=== PATIENT | male | born 1990 | race Caucasian/White ===

== ENCOUNTER 2020-11-21 17:07 | Inpatient (IN) | payer OTHER ==
[2020-11-21 20:18] LABS: Absolute Lymphocytes (CBC) 2.1 K/uL (0.7-4.9); Basophils % 0.7 % (0-1.3); Hematocrit 39.4 % (39.6-49.0); Lymphocytes % 26.6 % (15.3-44.8); MPV 8.7 fL (7.6-11.3); RBC Red Blood Cell Count 4.31 M/uL (4.33-5.43)
[2020-11-21] MEDS ORDERED: ONDANSETRON 4 MG/2 ML VIAL ONE (20:40)
[2020-11-21] MEDS ORDERED: NA CHLORIDE 0.9% 1,000 ML ONE (20:40)
--- NOTE | 2020-11-21 20:40 | RAD REPORT ---
EXAM DESCRIPTION: CTAbdomen Pelvis W Contrast - 11/21/2020 8:21 pm CLINICAL HISTORY: Abdominal pain. vomiting;Abd pain COMPARISON: No comparisons TECHNIQUE: Biphasic CT imaging of the abdomen and pelvis was performed with 100 ml non-ionic IV cont rast. All CT scans are performed using dose optimization technique as appropriate and may include automated exposure control or mA/KV adjustment according to patient size. FINDINGS: The lung bases are clear. The liver, spleen, pancreas, adrenal glands and kidneys are within normal limits. Abnormal segment of small bowel in the left hemiabdomen. The wall is thickened. It is dilated measuri ng about 5.1 centimeters. The appendix is normal. No evidence of significant lymphadenopathy. No suspicious bony findings. IMPRESSION: Grossly abnormal, dilated segment of small bowel in the left hemiabdomen with wall thick ening of uncertain etiology. There is a transition to nondilated small bowel. The cause of this trans ition is unclear. There may be an underlying small bowel mass or perhaps non radiopaque foreign body.
[2020-11-21 21:00] LABS: Bilirubin Direct 0.3 mg/dL (0-0.2); Bilirubin Total 1.1 mg/dL (0.2-1.0); Potassium 3.6 mmol/L (3.5-5.1); Protein, Total 7.2 g/dL (6.4-8.2)
--- NOTE | 2020-11-21 21:18 | ER ---
Nurse's Notes [facility] Name: Vladimir Aguilar Age: 30 yrs Sex: Male : 1990 Arrival Date: 11/21/2020 Time: 17:24 Bed 5 Private MD: Diagnosis: Other intestinal obstruction-small bowel obstruction Presentation: 11/21 18:04 Chief complaint: Patient states: Pt stated, " Every time I eat I throw up. This kg happened about a month ago and then went away and now its been going on for the last three days. I think it's acid reflux. I tried to see Dr. Bocanegra but they said I had to have a referral. ". Coronavirus screen: Client denies travel out of the [place] in the last 14 days. At this time, unable to obtain information related to travel outside the [place] At this time, the client does not indicate any symptoms associated with coronavirus-19. Ebola Screen: Patient negative for fever greater than or equal to 101.5 degrees Fahrenheit, and additional compatible Ebola Virus Disease symptoms Patient denies exposure to infectious person. Patient denies travel to an Ebola-affected area in the 21 days before illness onset. Initial Sepsis Screen: Does the patient meet any 2 criteria? No. Patient's initial sepsis screen is negative. Does the patient have a suspected source of infection? No. Patient's initial sepsis screen is negative. Risk Assessment: Do you want to hurt yourself or someone else? Patient reports no desire to harm self or others. Onset of symptoms was November 18, 2020. 18:04 Method Of Arrival: Ambulatory kg 18:04 Acuity: UNA 4 kg Triage Assessment: 18:07 General: Appears in no apparent distress. Behavior is calm, cooperative, appropriate kg for age, quiet. Pain: Denies pain. GI: Reports vomiting. Historical: - Allergies: 18:07 Z-pack; kg - Home Meds: 18:07 None [Active]; kg - PMHx: 18:07 None; kg - PSHx: 18:07 Tonsillectomy; kg - Immunization history:: Adult Immunizations not up to date, Client reports having NOT received the Covid vaccine. - Social history:: Smoking status: Patient reports the use of cigarette tobacco products, smokes one-half pack cigarettes per day, Patient uses alcohol, weekly. Screenin:09 Abuse screen: Denies threats or abuse. Denies injuries from another. Nutritional kg screening: No deficits noted. Tuberculosis screening: No symptoms or risk factors identified. Fall Risk None identified. Assessment: 20:28 General: Appears in no apparent distress. comfortable, Behavior is calm, cooperative. vg1 Pain: Complains of pain in epigastric area Pain currently is 2 out of 10 on a pain scale. Pain began 2-3 days ago. Neuro: Level of Consciousness is awake, alert, obeys commands, Oriented to person, place, time, situation. Cardiovascular: Patient's skin is warm and dry. Respiratory: Airway is patent Respiratory effort is even, unlabored. GI: Abdomen is flat, Reports nausea, vomiting, Patient currently denies diarrhea. : No signs and/or symptoms were reported regarding the genitourinary system. EENT: No signs and/or symptoms were reported regarding the EENT system. Derm: Skin is intact, is healthy with good turgor. Musculoskeletal: Circulation, motion, and sensation intact. 23:55 Reassessment: Patient appears in no apparent distress at this time. Patient and/or jb4 family updated on plan of care and expected duration. Pain level reassessed. Patient is alert, oriented x 3, equal unlabored respirations, skin warm/dry/pink. Vital Signs: 18:04 BP 128 / 85; Pulse 87; Resp 20; Temp 98.6(TE); Pulse Ox 100% on R/A; Weight 74.84 kg kg (R); Height 5 ft. 7 in. (170.18 cm); Pain 0/10; 18:04 Body Mass Index 25.84 (74.84 kg, 170.18 cm) kg ED Course: 17:24 Patient arrived in ED. ds1 18:07 Triage completed. kg 18:07 Arm band placed on right wrist. kg 18:09 Patient has correct armband on for positive identification. kg 19:44 Edilberto Bettencourt NP is PHCP. pm1 19:44 Yousif Brand MD is Attending Physician. pm1 20:07 Teresa Price, ELDER is Primary Nurse. vg1 20:11 Inserted saline lock: 22 gauge in right antecubital area, using aseptic technique. ds4 Blood collected. 20:21 CT Abd/Pelvis - IV Contrast Only In Process Unspecified. EDMS 21:16 Andrey Beltrán PA is Hospitalizing Provider. pm1 21:22 COVID swab sent to lab. vg1 23:55 No provider procedures requiring assistance completed. Patient admitted, IV remains in jb4 place. Administered Medications: 20: Drug: NS 0.9% 1000 ml Route: IV; Rate: 1000 ml; Site: right antecubital; vg1 21:19 Follow up: IV Status: Completed infusion; IV Intake: 1000ml vg1 20:27 Drug: Zofran (Ondansetron) 4 mg Route: IVP; Site: right antecubital; vg1 21:19 Follow up: Response: No adverse reaction vg1 Intake: 21:19 IV: 1000ml; Total: 1000ml. vg1 Outcome: 21:17 Decision to Hospitalize by Provider. pm1 23:55 Admitted to [facility] Hold. [facility] jb4 23:55 Condition: stable 23:55 Discharge instructions given to patient, Instructed on the need for admit, Demonstrated understanding of instructions. 11/22 18:27 Patient left the ED. iw Signatures: Dispatcher [employer] EDSC Adriana Woods ds1 Ivana Gruber, RN RN iw Abraham Hernandes ds4 Edilberto Bettencourt NP [employer] pm1 Rigoberto Alvares RN RN jb4 Teresa Price, ELDER RN vg1 Arminda Wynne RN RN kg Corrections: (The following items were deleted from the chart) 11/21 18:08 18:07 Allergies: No Known Allergies; kg kg
--- NOTE | 2020-11-21 21:18 | EDPHYS ---
Physician Documentation [facility] Name: Vladimir Aguilar Age: 30 yrs Sex: Male : 1990 Arrival Date: 11/21/2020 Time: 17:24 Bed 5 Private MD: Yousif Ross HPI: 11/21 19:48 This 30 yrs old Male presents to ER via Ambulatory with complaints of pm1 Vomiting. 19:48 The patient presents to the emergency department with nausea, vomiting. Onset: The pm1 symptoms/episode began/occurred 2 day(s) ago. Possible causes: Possible acid reflux per patient. The symptoms are aggravated by food , The symptoms are alleviated by nothing. Associated signs and symptoms: Pertinent positives: abdominal pain, in epigastric area, Pertinent negatives: diarrhea, fever, GI bleeding. Severity of symptoms: in the emergency department the symptoms are worse. The patient has not experienced similar symptoms in the past. The patient has not recently seen a physician. Patient presents with nausea and vomiting with each meal for the past 2 days. For the past 2 to 3 weeks prior to current symptoms patient was having heartburn sensation with epigastric pain . Historical: - Allergies: 18:07 Z-pack; kg - Home Meds: 18:07 None [Active]; kg - PMHx: 18:07 None; kg - PSHx: 18:07 Tonsillectomy; kg - Immunization history:: Adult Immunizations not up to date, Client reports having NOT received the Covid vaccine. - Social history:: Smoking status: Patient reports the use of cigarette tobacco products, smokes one-half pack cigarettes per day, Patient uses alcohol, weekly. ROS: 19:48 Constitutional: Negative for fever, chills, and weight loss, Cardiovascular: Negative pm1 for chest pain, palpitations, and edema, Respiratory: Negative for shortness of breath, cough, wheezing, and pleuritic chest pain. 19:48 Back: Negative for injury and pain, MS/Extremity: Negative for injury and deformity, Skin: Negative for injury, rash, and discoloration, Neuro: Negative for headache, weakness, numbness, tingling, and seizure. 19:48 Abdomen/GI: Positive for abdominal pain, nausea and vomiting, Negative for diarrhea, constipation, hematemesis. 19:48 All other systems are negative. Exam: 19:48 Constitutional: This is a well developed, well nourished patient who is awake, alert, pm1 and in no acute distress. Head/Face: Normocephalic, atraumatic. 19:48 Back: No spinal tenderness. No costovertebral tenderness. Full range of motion. Skin: Warm, dry with normal turgor. Normal color with no rashes, no lesions, and no evidence of cellulitis. MS/ Extremity: Pulses equal, no cyanosis. Neurovascular intact. Full, normal range of motion. 19:48 Eyes: Exam is negative for acute changes, Extraocular movements: no acute changes, Conjunctiva: normal, no injection, Sclera: no acute changes, icterus, is not appreciated. 19:48 ENT: Exam is negative for acute changes, Mouth: Lips: normal, Oral mucosa: normal, pink and intact, moist. 19:48 Cardiovascular: Exam negative for acute changes, Rate: normal, Rhythm: regular, Pulses: no pulse deficits are appreciated, Edema: is not appreciated. 19:48 Respiratory: Exam negative for acute changes, respiratory distress, shortness of breath. 19:48 Neuro: Exam negative for acute changes, Orientation: is normal, Motor: is normal, moves all fours. Vital Signs: 18:04 BP 128 / 85; Pulse 87; Resp 20; Temp 98.6(TE); Pulse Ox 100% on R/A; Weight 74.84 kg kg (R); Height 5 ft. 7 in. (170.18 cm); Pain 0/10; 18:04 Body Mass Index 25.84 (74.84 kg, 170.18 cm) kg MDM: 19:44 Patient medically screened. pm1 19:48 Data reviewed: vital signs. Data interpreted: Pulse oximetry: on room air is 100 %. pm1 Interpretation: normal. 19:53 ED course: Patient is currently without pain = 0/10. Pain is only reproduced with pm1 eating. 20:55 ED course: Patient denies consumption of non-edible objects. pm1 21:10 Counseling: I had a detailed discussion with the patient and/or guardian regarding: the pm1 historical points, exam findings, and any diagnostic results supporting the discharge/admit diagnosis, lab results, radiology results, the need for further work-up and treatment in the hospital. 21:19 ED course: Patient's nausea improved with medications given in ER. Patient continues to pm1 be pain-free. 21:19 Physician consultation: Andrey MOORE regarding admission, patient's condition, would pm1 like consultation with Dr. Henao. 21:29 Physician consultation: Jhony Henao MD regarding consult, patient's condition, and will pm1 see patient tomorrow, NPO, IV fluids, Pain and nausea medications. Admit to the hospitalist. 11/21 19:48 Order name: Basic Metabolic Panel; Complete Time: 21:04 pm1 11/21 19:48 Order name: CBC with Diff; Complete Time: 20:19 pm1 11/21 19:48 Order name: Hepatic Function; Complete Time: 21:04 pm1 11/21 19:48 Order name: Lipase; Complete Time: 21:04 pm1 11/21 23:00 Order name: SARS-COV-2 RT PCR EDMS 11/22 01:57 Order name: CREATININE WHOLE BLOOD EDMS 11/22 05:38 Order name: CBC with Automated Diff EDMS 11/22 05:53 Order name: Comprehensive Metabolic Panel EDMS 11/22 05:53 Order name: Phosphorus EDMS 11/22 05:53 Order name: Lipid Profile EDMS 11/22 05:53 Order name: T4 Free EDMS 11/22 05:53 Order name: Magnesium EDMS 11/22 05:53 Order name: Thyroid Stimulating Hormone EDMS 11/21 19:48 Order name: IV Saline Lock; Complete Time: 20:13 pm1 11/21 19:48 Order name: Labs collected and sent; Complete Time: 20:13 pm1 11/21 19:48 Order name: CT Abd/Pelvis - IV Contrast Only; Complete Time: 20:42 pm1 11/21 21:17 Order name: NPO; Complete Time: 21:18 pm1 11/21 21:50 Order name: CONS Physician Consult EDMS Administered Medications: 20:26 Drug: NS 0.9% 1000 ml Route: IV; Rate: 1000 ml; Site: right antecubital; vg1 21:19 Follow up: IV Status: Completed infusion; IV Intake: 1000ml vg1 20:27 Drug: Zofran (Ondansetron) 4 mg Route: IVP; Site: right antecubital; vg1 21:19 Follow up: Response: No adverse reaction vg1 Disposition: 11/23 07:52 Co-signature as Attending Physician, Yousif Brand MD I agree with the assessment and michaela plan of care. Disposition Summary: 11/21/20 21:17 Hospitalization Ordered Hospitalization Status: Inpatient Admission pm1 Provider: Andrey Beltrán pm1 Condition: Stable pm1 Problem: new pm1 Symptoms: have improved pm1 Bed/Room Type: Standard pm1 Location: Telemetry/MedSurg (Inpatient)(11/22/20 17:38) bd Room Assignment: 228(11/22/20 17:38) bd Diagnosis - Other intestinal obstruction - small bowel obstruction pm1 Forms: - Medication Reconciliation Form pm1 - SBAR form pm1 Signatures: Dispatcher [employer] EDMS Ana Pereira Corey, MD MD cha Garcia, Cindy, RN RN cg Edilberto Bettencourt NP [employer]END[employer] pm1 Teresa Price RN RN vg1 Arminda Wynne RN RN kg Corrections: (The following items were deleted from the chart) 11/21 18:08 18:07 Allergies: No Known Allergies; kg kg 22:01 21:15 CORONAVIRUS+MR.LAB.BRZ ordered. EDMS EDMS 11/22 00:20 11/21 21:17 Telemetry/MedSurg (Inpatient) pm1 cg 11/22 00:20 11/21 21:17 pm1 cg 11/22 17:38 00:20 [facility] ER HOLD cg bd 17:38 00:20 ERHOLD- cg bd
--- NOTE | 2020-11-21 23:12 | P.HP ---
Certification for Inpatient Patient admitted to: Inpatient With expected LOS: <2 Midnights Patient will require the following post-hospital care: None Practitioner: I am a practitioner with admitting privileges, knowledge of patient current condition, hospital course, and medical plan of care. Services: Services provided to patient in accordance with Admission requirements found in Title 42 Section 412.3 of the Code of Federal Regulations Patient History Date of Service: 11/21/20 Reason for admission: dysphagia History of Present Illness: Mr. Aguilar is a 30 yo M with no PMHx who presents with dysphagia. One month ago, he had an episode of vomiting and abdominal pain after eating. Abdominal pain described as stabbing and cramping, located in the epigastric area. Then two weeks later, it happened again. Starting Saturday, he was unable to keep any meal down. He is still able to tolerate fluids. Asymptomatic when not eating. Denies hemoptysis. CT scan shows Grossly abnormal, dilated segment of small bowel in the left hemiabdomen with wall thickening of uncertain etiology. There is a transition to nondilated small bowel. The cause of this transition is unclear. There may be an underlying small bowel mass or perhaps non radiopaque foreign body. - Past Medical/Surgical History Past Medical History: Patient denies medical history Past Surgical History: Patient denies surgical history - Social History Smoking Status: Current every day smoker Alcohol use: Yes CD- Drugs: No Caffeine use: Yes Place of Residence: Home Review of Systems 10-point ROS is otherwise unremarkable Gastrointestinal: Nausea, Vomiting, Abdominal Pain, No Distention Physical Examination - Physical Exam General: Alert, In no apparent distress HEENT: Atraumatic, PERRLA, Mucous membr. moist/pink, EOMI, Sclerae nonicteric Neck: Supple, 2+ carotid pulse no bruit, No LAD, Without JVD or thyroid abnormality Respiratory: Clear to auscultation bilaterally, Normal air movement Cardiovascular: Regular rate/rhythm, Normal S1 S2 Gastrointestinal: Normal bowel sounds, Soft and benign, Non-distended, No asc ites, No tenderness, No masses, No rebound, No guarding Musculoskeletal: No tenderness Integumentary: No rashes Neurological: Normal gait, Normal speech, Normal strength at 5/5 x4 extr, Normal tone, Normal affect Lymphatics: No axilla or inguinal lymphadenopathy - Studies Laboratory Data (last 24 hrs) 11/21/20 20:11: WBC 7.90, Hgb 13.9, Hct 39.4 L, Plt Count 214 11/21/20 20:11: Sodium 140, Potassium 3.6, BUN 9, Creatinine 1.06, Glucose 91, Total Bilirubin 1.1 H, AST 19, ALT 27, Alkaline Phosphatase 87, Lipase 64 L Assessment and Plan - Problems (Diagnosis) (1) Dysphagia Current Visit: Yes Status: Acute Qualifiers: Dysphagia type: unspecified Qualified Code(s): R13.10 - Dysphagia, unspecified (2) Abdominal mass Current Visit: Yes Status: Acute Qualifiers: Abdominal location: unspecified location Qualified Code(s): R19.00 - Intra- abdominal and pelvic swelling, mass and lump, unspecified site - Plan Surgery consulted NPO continue IVF hydration pain management and antiemetics as needed DVT ppx Discharge Plan: Home Plan to discharge in: 48 Hours - Advance Directives Does patient have a Living Will: No Does patient have a Durable POA for Healthcare: No - Code Status/Comfort Care Code Status Assessed: Yes (full code ) Critical Care: No Time Spent Managing Pts Care (In Minutes): 70
[2020-11-22] MEDS: NA CHLORIDE 0.9% 1,000 ML IV SCH ×4 (00:22→23:49)
[2020-11-22] MEDS ORDERED: ONDANSETRON 4 MG/2 ML VIAL IV PRN (00:22)
[2020-11-22] MEDS ORDERED: MORPHINE 2 MG/ML SYR IV PRN (00:22)
[2020-11-22] MEDS ORDERED: ACETAMINOPHEN 500 MG TAB PO PRN (00:22)
[2020-11-22 00:39] VITALS: BMI 25.8
[2020-11-22] MEDS ORDERED: NA CHLORIDE 0.9% 1,000 ML ONE ×2 (01:29→12:00)
[2020-11-22 05:32] LABS: Absolute Lymphocytes (CBC) 1.5 K/uL (0.7-4.9); Basophils % 0.4 % (0-1.3); Hematocrit 36.3 % (39.6-49.0); Lymphocytes % 23.8 % (15.3-44.8); MPV 8.6 fL (7.6-11.3); RBC Red Blood Cell Count 3.98 M/uL (4.33-5.43)
[2020-11-22 05:50] LABS: ALT/SGPT 23 U/L (12-78); AST/SGOT 16 U/L (15-37); Albumin 3.6 g/dL (3.4-5.0); Alkaline Phosphatase 79 U/L (45-117); BUN Blood Urea Nitrogen 8 mg/dL (7-18); Bicarbonate 30 mmol/L (21-32); Bilirubin Total 1.1 mg/dL (0.2-1.0); Glucose Level 84 mg/dL (74-106); HDL Cholesterol 27 mg/dL (40-60); LDL Cholesterol, Calculated 56 (<130); Magnesium 2.4 mg/dL (1.8-2.4); Phosphorus 3.1 mg/dL (2.5-4.9); Potassium 3.7 mmol/L (3.5-5.1); Protein, Total 6.2 g/dL (6.4-8.2); Sodium Level 142 mmol/L (136-145)
--- NOTE | 2020-11-22 18:56 | P.PN ---
Subjective Date of Service: 11/22/20 Chief Complaint: dysphagia Patient report mild intermittent pain in the right lower quadrant. No nausea or vomiting. He want to try some ice chips. Physical Examination - Vital Signs Temperature: 97.4 F Blood Pressure: 104/54 Pulse: 124 Respirations: 18 Pulse Ox (%): 94 - Physical Exam General: Alert, In no apparent distress HEENT: Mucous membr. moist/pink Neck: JVD not distended Respiratory: Clear to auscultation bilaterally, Normal air movement Cardiovascular: No edema, Regular rate/rhythm, Normal S1 S2 Gastrointestinal: Soft and benign, Non-distended, No tenderness Musculoskeletal: No swelling Integumentary: No rashes Neurological: Normal strength at 5/5 x4 extr - Studies Laboratory Data (last 24 hrs) 11/21/20 20:11: WBC 7.90, Hgb 13.9, Hct 39.4 L, Plt Count 214 11/21/20 20:11: Sodium 140, Potassium 3.6, BUN 9, Creatinine 1.06, Glucose 91, Total Bilirubin 1.1 H, AST 19, ALT 27, Alkaline Phosphatase 87, Lipase 64 L Assessment And Plan - Current Problems (Diagnosis) (1) Dysphagia Current Visit: Yes Status: Acute Qualifiers: Dysphagia type: unspecified Qualified Code(s): R13.10 - Dysphagia, unspecified (2) Dilation of intestine Current Visit: Yes Status: Acute (3) Elevated bilirubin Current Visit: Yes Status: Acute - Plan Case discussed with general surgery-Dr. Henao. Obtain small-bowel series. Supportive measures with IV fluid. Pain management as needed. Cause of dysphagia unknown Patient may need GI evaluation-esophagram and EGD but often small-bowel series first to evaluate for bowel obstruction. Elevated bilirubin of on nonsignificance. Monitor LFT.
[2020-11-23] MEDS: NA CHLORIDE 0.9% 1,000 ML IV SCH ×3 (06:21→22:48)
[2020-11-23 06:40] LABS: Absolute Lymphocytes (CBC) 1.3 K/uL (0.7-4.9); Basophils % 0.7 % (0-1.3); Hematocrit 36.8 % (39.6-49.0); Lymphocytes % 23.8 % (15.3-44.8); MPV 8.7 fL (7.6-11.3); RBC Red Blood Cell Count 3.98 M/uL (4.33-5.43)
[2020-11-23 07:03] LABS: ALT/SGPT 20 U/L (12-78); AST/SGOT 15 U/L (15-37); Albumin 3.5 g/dL (3.4-5.0); Alkaline Phosphatase 79 U/L (45-117); BUN Blood Urea Nitrogen 13 mg/dL (7-18); Bicarbonate 20 mmol/L (21-32); Bilirubin Total 1.3 mg/dL (0.2-1.0); Glucose Level 57 mg/dL (74-106); Potassium 4.3 mmol/L (3.5-5.1); Protein, Total 6.3 g/dL (6.4-8.2); Sodium Level 145 mmol/L (136-145)
--- NOTE | 2020-11-23 11:21 | CON ---
Date of Consultation: 11/22/2020 Brief History Of Present Illness: The patient is a 30-year-old male with no past medical h istory, who presents with dysphagia and nausea, vomiting, beginning several days before. He had a si milar episode about a month ago, which resolved after about a 2-week course of decreased p.o. intake; however, it recurred on this particular occasion. As such, he came to the emergency room with the a rosy-stated complaints. Past Medical History: Negative. Past Surgical History: Negative. Social History: He smokes cigarettes every day. He denies recreational drug use. He drinks alcohol recreationally at times. Medications: He takes no medications. Allergies: NO KNOWN DRUG ALLERGIES. Review of Systems: A 10-point review of systems other than HPI, he denies. Physical Examination: Vital signs: At the time of my examination; his BMI was 25.8. His vital signs were a blood pressure of 112/74, respiratory rate is 14, pulse 68, temperature 98.9, SpO2 99% on room air. General: He is awake, alert, oriented. Psychiatric: He is appropriate, conversive. HEENT: Normocephalic. Sclerae are anicteric. Mucous membranes are moist. His oropharynx is clear. Neck: Supple without JVD. Chest: Normal expansion and excursion. Cardiovascular: Regular rate and rhythm. Pulmonary: Clear to auscultation bilaterally. Abdomen: Soft, nontender, nondistended. No rebound. No guarding. No focal peritonitis. No scars. Pelvis: Stable. Extremities: No clubbing, cyanosis, or edema. Skin: Warm and dry. Laboratory Data: Revealed a white blood cell count of 6.3, hemoglobin 12.9, hematocrit 36.3, platele t count was 179. His neutrophils are normal at 64%. His sodium 142, potassium 3.7, chloride 110, ca rbon dioxide 30, BUN 8, creatinine 0.9, glucose was 84, calcium 8.7, phosphorus 3.1, magnesium 2.4, t otal bilirubin 1.1, AST 16, ALT 23, alkaline phosphatase is 79. His lipase was 64 on admission. He had imaging performed, which included a CT of the abdomen and pelvis, was officially read. The offic ia dictation is not available due to computer dysfunction; however, the CT showed a small bowel obst ruction in the proximal jejunum with a possible foreign body versus inflammatory process, possible ma ss. The official dictation once again is not available due to computer technical issues; however, th e small bowel was dilated up to 5 cm with distal decompression. Assessment And Plan: This is a 30-year-old male, who presents with a bowel obstruction of uncertain etiology. 1.IV fluid hydration. 2.N.p.o. 3.The patient states he is currently asymptomatic, has been having bowel function. As such, I will recommend a small bowel series to see if we can better define the etiology of this obstruction as the patient had no abdominal surgery and has no past medical history and denies swallowing any foreign b odies or food stuffs that could potentially have caused the obstruction. Therefore, we will see if a small bowel series helps us better to define this. I have also instructed the patient he needs to f ollow up with a propulsion engineer as an outpatient and continued workup should he resolve this in a nonoperative fashion. I have also explained that if he does not resolve, he may need a surgery with exploratory laparotomy, possible small bowel resection and indicated procedures. He agrees to procee d as indicated. Thank you for this interesting consult. MANDA/WALESKA Voice ID: [id number] Report ID: [id number]
--- NOTE | 2020-11-23 11:58 | RAD REPORT ---
EXAM DESCRIPTION: RAD - Small Bowel Series - 11/23/2020 11:09 am CLINICAL HISTORY: BOWEL DILATION , DYSPHAGIA Abdominal pain COMPARISON: Abdomen Pelvis W Contrast dated 11/21/2020 FINDINGS: [employer] Specialist film shows a nonspecific bowel gas pattern. No obstruction or free air. No suspiciou s calcifications. The abnormally dilated segment of small bowel centrally within the abdomen is again identified and th ough this time in the right right upper quadrant. The contrast traverses this segment without difficu lty. There is normal small bowel to colon transit. The fold pattern is normal. No bowel obstruction i s seen. No fluoroscopy was performed. Total images acquired: 17 IMPRESSION: Segmental small bowel dilatation as was seen on the CT without identifiable etiology or significance. Contrast traversed the segment without difficulty. If symptoms persist, could consider capsule endoscopy for further evaluation.
--- NOTE | 2020-11-23 15:04 | P.PN ---
Subjective Date of Service: 11/23/20 Chief Complaint: dysphagia No complain. Small-bowel series done today. No nausea or vomiting. Physical Examination - Vital Signs Temperature: 98.4 F Blood Pressure: 112/58 Pulse: 66 Respirations: 18 Pulse Ox (%): 99 - Physical Exam General: Alert, In no apparent distress HEENT: Mucous membr. moist/pink Neck: JVD not distended Respiratory: Clear to auscultation bilaterally, Normal air movement Cardiovascular: No edema, Regular rate/rhythm, Normal S1 S2 Gastrointestinal: Soft and benign, Non-distended Musculoskeletal: No swelling Integumentary: No rashes Neurological: Normal strength at 5/5 x4 extr Assessment And Plan - Current Problems (Diagnosis) (1) Dysphagia Current Visit: Yes Status: Acute Qualifiers: Dysphagia type: unspecified Qualified Code(s): R13.10 - Dysphagia, unspecified (2) Dilation of intestine Current Visit: Yes Status: Acute (3) Elevated bilirubin Current Visit: Yes Status: Acute - Plan Small-bowel series results reviewed. Segmental bowel dilatation again noted. Contrast passed through with no difficulty. Start clear liquid diet and advanced as tolerated per Dr. Henao Continue IV fluid until patient able to tolerate p.o. Pain management as needed. Cause of dysphagia unknown. Patient may need GI evaluation-esophagram and EGD as an outpatient if patient is able to tolerate p.o. here. Elevated bilirubin of on nonsignificance. Monitor LFT.
[2020-11-24 06:39] LABS: Absolute Lymphocytes (CBC) 1.2 K/uL (0.7-4.9); Basophils % 0.8 % (0-1.3); Hematocrit 36.9 % (39.6-49.0); MPV 8.5 fL (7.6-11.3); RBC Red Blood Cell Count 4.06 M/uL (4.33-5.43)
[2020-11-24 06:55] LABS: ALT/SGPT 19 U/L (12-78); AST/SGOT 16 U/L (15-37); Albumin 3.5 g/dL (3.4-5.0); Alkaline Phosphatase 72 U/L (45-117); BUN Blood Urea Nitrogen 6 mg/dL (7-18); Bicarbonate 27 mmol/L (21-32); Bilirubin Direct 0.3 mg/dL (0-0.2); Bilirubin Total 1.3 mg/dL (0.2-1.0); Glucose Level 82 mg/dL (74-106); Potassium 4.2 mmol/L (3.5-5.1); Protein, Total 6.2 g/dL (6.4-8.2); Sodium Level 141 mmol/L (136-145)
[2020-11-24] MEDS: NA CHLORIDE 0.9% 1,000 ML IV SCH (08:27)
[2020-11-24 11:19] VITALS: O2SAT 99
[2020-11-24 16:24] VITALS: BP 118/55; TEMP 97.9
--- NOTE | 2020-11-24 18:26 | P.DS ---
Admission Date: 11/21/20 Discharge Date: 11/24/20 Disposition: ROUTINE DISCHARGE Discharge Condition: FAIR Reason for Admission: dysphagia - Problems (1) Dysphagia Current Visit: Yes Status: Acute Qualifiers: Dysphagia type: unspecified Qualified Code(s): R13.10 - Dysphagia, unspecified (2) Dilation of intestine Current Visit: Yes Status: Acute (3) Elevated bilirubin Current Visit: Yes Status: Acute Brief History of Present Illness: 30 year old gentleman with no PMHx who presents with dysphagia. Patient reports 1 month history of intermittent vomiting and abdominal pain. Pain located mostly in the epigastrium. Symptoms progressed to the point where he could not keep any meal down. He could see tolerate liquids. Pain worse with eating. CT scan showed Grossly abnormal, dilated segment of small bowel in the left hemiabdomen with wall thickening of uncertain etiology. There is a transition to nondilated small bowel. The cause of this transition is unclear. There may be an underlying small bowel mass or perhaps non radiopaque foreign body. Patient admitted for further management. Hospital Course: Patient admitted to the medical floor and treated supportively with IV hydration. Seen by surgery-Dr. Henao who recommended medical management. Small-bowel series done showed no difficulty in transit across the dilated bowel segment. No obstruction found. Patient was started on clear liquid and advanced to soft diet which she tolerated. He will need follow up with gastroenterology to further evaluate his dysphagia to solids. Vital Signs/Physical Exam: Temp Pulse Resp BP Pulse Ox 97.9 F 63 16 118/55 L 99 11/24/20 16:00 11/24/20 16:00 11/24/20 16:00 11/24/20 16:00 11/24/20 16:00 General: Alert, In no apparent distress, Oriented x3 HEENT: Mucous membr. moist/pink Neck: Supple, JVD not distended Respiratory: Clear to auscultation bilaterally, Normal air movement Cardiovascular: Regular rate/rhythm, Normal S1 S2 Gastrointestinal: Normal bowel sounds, Soft and benign, Non-distended Musculoskeletal: No swelling, No erythema Integumentary: No rashes Neurological: Normal strength at 5/5 x4 extr Laboratory Data at Discharge: WBC 4.90 K/uL (4.3-10.9) 11/24/20 06:21 Hgb 13.2 g/dL (13.6-17.9) L 08/12/21 06:21 Hct 36.9 % (39.6-49.0) L 11/24/20 06:21 Plt Count 210 K/uL (152-406) 11/24/20 06:21 Sodium 141 mmol/L (136-145) 11/24/20 06:21 Potassium 4.2 mmol/L (3.5-5.1) 11/24/20 06:21 BUN 6 mg/dL (7-18) L 11/24/20 06:21 Creatinine 0.83 mg/dL (0.55-1.3) 11/24/20 06:21 Glucose 82 mg/dL (74-106) 11/24/20 06:21 Phosphorus 3.1 mg/dL (2.5-4.9) 11/22/20 05:17 Magnesium 2.4 mg/dL (1.8-2.4) 11/22/20 05:17 Total Bilirubin 1.3 mg/dL (0.2-1.0) H 11/24/20 06:21 AST 16 U/L (15-37) 11/24/20 06:21 ALT 19 U/L (12-78) 11/24/20 06:21 Alkaline Phosphatase 72 U/L (45-117) 11/24/20 06:21 Triglycerides 146 mg/dL (<150) 11/22/20 05:17 Cholesterol 112 mg/dL (<200) 11/22/20 05:17 HDL Cholesterol 27 mg/dL (40-60) L 11/22/20 05:17 Cholesterol/HDL Ratio 4.15 11/22/20 05:17 Lipase 64 U/L (73-393) L 11/21/20 20:11 Home Medications: Pantoprazole Sodium [Protonix] 40 mg PO DAILY #30 tablet. 11/24/20 New Medications: Pantoprazole Sodium [Protonix] 40 mg PO DAILY #30 tablet. Diet: Soft diet Activity: Ad doc Followup: NONE,NONE [Primary Care Provider] - Wong Varela MD [ACTIVE - CAN ADMIT] - 1-2 Weeks Time spent managing pt's care (in minutes): 38
== END 2020-11-24 18:45 | disposition home or self-care (01) | DRG 392 ==
LOC: ER 17:07 → ERHOLD 21:48 → 2ND 11-22 18:06
PROVIDERS: ADMIT Internal Medicine; ATTEND Internal Medicine
DX: R13.10 Dysphagia, unspecified (principal); K31.0 Acute dilatation of stomach; E80.6 Other disorders of bilirubin metabolism; F17.210 Nicotine dependence, cigarettes, uncomplicated; Z20.822 Contact with and (suspected) exposure to COVID-19
CPT/HCPCS: 36415; 74177; 74250; 80048; 80053; 80061; 80076; 82565; 83690; 83735; 84100; 84439; 84443; 85025; 94760; 96361; 96374; 99285; J2405; J7030; Q9967; U0003

== ENCOUNTER 2021-01-02 07:45 | Inpatient (IN) | payer OTHER, SELFPAY ==
[2020-12-30 13:14] LABS: Protime INR 0.97
[2020-12-30 13:28] LABS: Basophils % 0.7 % (0-1.3); Hematocrit 38.8 % (39.6-49.0); Lymphocytes % 17.2 % (15.3-44.8); MPV 9.2 fL (7.6-11.3); RBC Red Blood Cell Count 4.25 M/uL (4.33-5.43)
[2020-12-30 13:30] LABS: BUN Blood Urea Nitrogen 8 mg/dL (7-18); Bicarbonate 29 mmol/L (21-32); Glucose Level 90 mg/dL (74-106); Potassium 4.1 mmol/L (3.5-5.1); Sodium Level 139 mmol/L (136-145)
[2021-01-02] MEDS ORDERED: CEFAZOLIN/SWI 1gm 1 GM/10 ML SYR IVP SCH ×2 (08:00→17:15)
[2021-01-02] MEDS ORDERED: NA CIT/CITRIC AC 30 ML ORAL UDC PO ONE (08:25)
[2021-01-02] MEDS ORDERED: Ringers Lactate 1,000 ML IV ONE ×3 (08:35→12:47)
[2021-01-02] MEDS ORDERED: CEFAZOLIN/SWI 1gm 1 GM/10 ML SYR ONE (08:35)
[2021-01-02] MEDS ORDERED: NA CIT/CITRIC AC 30 ML ORAL UDC ONE (08:40)
[2021-01-02] MEDS ORDERED: BUPIVACAINE 0.25% PF 30 ML VIAL ONE (09:24)
[2021-01-02] MEDS ORDERED: SUCCINYLCHOLINE 20 MG/ML (10 ML) IV ONE (09:39)
[2021-01-02] MEDS ORDERED: propofoL 200 MG/20 ML VIAL IV ONE (09:42)
[2021-01-02] MEDS ORDERED: FENTANYL CITR 250 MCG/5 ML ONE ×2 (09:42→10:39)
[2021-01-02] MEDS ORDERED: LIDOCAINE 1% MPF 5 ML VIAL ONE (09:42)
[2021-01-02] MEDS ORDERED: NS 0.9% VIAL 10 ML ONE (09:43)
[2021-01-02] MEDS ORDERED: MIDAZOLAM HCL 2 MG/2 ML INJ ONE (09:43)
[2021-01-02] MEDS ORDERED: ONDANSETRON 4 MG/2 ML VIAL ONE ×2 (09:43→10:41)
[2021-01-02] MEDS ORDERED: VECURONIUM 10 MG/VIAL IV ONE (09:43)
[2021-01-02] MEDS ORDERED: KETOROLAC 30 MG/ML INJ ONE (10:40)
[2021-01-02] MEDS ORDERED: ESMOLOL HCL 0 ML IV ONE (10:40)
[2021-01-02] MEDS ORDERED: dexAMETHasone 10 MG/ML VIAL ONE (10:40)
--- NOTE | 2021-01-02 11:15 | P.OP ---
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
[2021-01-02] MEDS ORDERED: CEFAZOLIN/NS 1gm 1 GM/50 ML BAG IVPB ONE (11:23)
[2021-01-02] MEDS ORDERED: ONDANSETRON 4 MG/2 ML VIAL IV PRN (11:23)
[2021-01-02] MEDS ORDERED: GLYCOPYRROLATE 0.2 MG/ML SYR ONE (11:27)
[2021-01-02] MEDS ORDERED: NEOSTIGMINE 1 MG/ML -5 ML ONE (11:29)
[2021-01-02] MEDS: INSULIN -REGULAR HUMAN 50 UNIT/0.5 ML ML SQ SCH ×3 (11:30→20:26)
[2021-01-02] MEDS: D5.45NS W/KCL 20MEQ 1,000 ML IV SCH ×2 (12:00→17:57)
[2021-01-02] MEDS ORDERED: PROMETHAZINE INJ 25 MG/ML AMP ONE (12:05)
[2021-01-02] MEDS: HYDROMORPHONE HCL 1 MG/ML INJ IV PRN ×3 (12:24→20:23)
--- NOTE | 2021-01-02 12:37 | OP ---
Date of Procedure: 01/02/2021 Surgeon: Jhony Henao MD, Preoperative Diagnosis: Small bowel neoplasm. Postoperative Diagnosis: Small bowel neoplasm. Procedures Performed: 1.Exploratory laparotomy. 2.Small bowel resection with primary anastomosis. Anesthesia: General endotracheal plus local with 0.25% Marcaine. Estimated Blood Loss: Less than 20 mL. Specimen: Small bowel. Findings: There was a mass causing partial obstruction at the proximal small bowel approximately 50 cm from the ligament of Treitz. Complications: None. Disposition: The patient was transferred to recovery room in good condition. Procedure In Detail: After informed consent was obtained, the patient was brought to the operating r oom, prepped and draped in the usual sterile fashion. Through a mini-laparotomy incision through the midline, I cut the skin with a 10 blade. I then dissected down through the subcutaneous fat to expo se the fascial planes and dissected through and opened the peritoneum sharply after grasping and elev ating the fascia. The peritoneum was opened safely and sharply with Metzenbaum scissors. The abdome n was then opened through the mini-laparotomy in the entirety of the incision. At this point, I exte riorized and began to eviscerate the small bowel and I ran the small bowel beginning proximally where it was obviously dilated. A transition point was appreciated with a mass easily seen at approximate ly 50 cm from the ligament of Treitz. The mass was minimally handled throughout the entire procedure . At this point, I ran the entire small bowel. This was the only mass, which was palpable at this p oint. I then examined the intraperitoneal portion of the colon, right transverse and descending colo n as well as sigmoid and rectum. All the intraperitoneal portions were examined and found not to hav e any obvious pathology on palpation. On the exam of the liver at this point, there was no evidence of metastatic disease on the liver on palpating both right and left liver. I then inspected the sadaf toneum and found no evidence of metastatic disease throughout. The spleen was also palpated and no o bvious metastatic deposits were appreciated. After this exploration was completed, I then brought th e small bowel into the surgical field and approximately 10 cm from both proximal and distal aspects o f this mass, I then made a mesenteric window with an electrocautery, fired LESTER blue 75 across the sma ll bowel, which was found to be quite dilated proximally and relatively normal in caliber on the dist al aspect. After the small bowel was divided at this point, I palpated some lymph nodes that had rohan e enlargement to them, difficult to discern whether there was a neoplastic deposit this, it was not o bvious; however, there were some enlarged lymph nodes that were palpable. As such, I performed a wed ge resection down to the root of the blood supply at this point using back lighting to attempt to spa re as much of the remaining blood supply to the proximal and distal small bowel to be reanastomosed. At this point, I ligated with the LigaSure device and there was minimal bleeding. At this point, I then oversewed this LigaSure seal as there was some bleeding from the burn line at this point with a 3-0 Vicryl suture with good hemostasis at this point. I then removed the small bowel and sent off fo r pathologic examination. At this point, I palpated the remaining area noted. No additional lymph n odes were noted to be enlarged at this point. I then brought the small bowel proximal and distal end s in a [id number] fashion and secured the antimesenteric borders using a proximal 3-0 silk suture a t the previous staple line distally. There was some bleeding at the staple line at this point on the both proximal and distal aspects of the small bowel interestingly and as such, I oversewed the stapl e line at this bleeding point with a [id number] 3-0 Vicryl suture on both the proximal and dista l small bowel. Once the small bowel was realigned, a sterile field was created with laparotomy pads and I made an enterotomy on both the proximal and distal aspects, opened this with hemostats, examine d the mucosa which was found to be viable at this point. No bleeding was appreciated. I placed the LESTER 75 blue load and fired the between the proximal and distal small bowel to create the anastomosis at this point. After the anastomosis was created, I removed the stapler, examined the mucosa and com mon channel, found to be widely patent. No bleeding or hemostatic maneuvers were required. The muco sa appeared pink at this point both internally and externally. I then closed the common channel usin g a 3-0 PDS suture in a Lembert running fashion with good apposition seromuscular sutures. I then im bricated the staple line and a second layer of interrupted 3-0 nylon Lembert sutures to reinforce the staple line. I then closed the common mesenteric defect with a running 3-0 Vicryl suture and I copi ously irrigated the abdomen at this point. No additional hemostatic maneuvers were required. No ble eding was appreciated. The blood loss was minimal at this point up to approximately 20 mL. After th e abdomen was irrigated, once again I inspected and found no additional pathologic issues to deal wit h. As such, I brought the omentum and wrapped the anastomosis with this and placed it anteriorly to ensure additional buttressing of this area and I then chose to close the abdomen after completely rem oving all irrigant from the abdomen. The abdomen was closed with a #1 PDS suture with a fish protect or in place under direct visualization with good approximation of the midline abdominal wall. After this was closed in its entirety, the skin was irrigated and closed with interrupted gala and steri le dressing placed over top. The patient tolerated the procedure well without evidence of complicati on and transferred to PACU in good condition. All counts were correct at the end of the case. MANDA/WALESKA Voice ID: [id number] Report ID: [id number]
[2021-01-02] MEDS ORDERED: HYDROMORPHONE HCL 1 MG/ML INJ ONE (12:45)
[2021-01-02 17:32] VITALS: BMI 26.3
[2021-01-03] MEDS: HYDROMORPHONE HCL 1 MG/ML INJ IV PRN ×5 (01:14→20:29)
[2021-01-03] MEDS: D5.45NS W/KCL 20MEQ 1,000 ML IV SCH ×2 (03:47→15:53)
[2021-01-03] MEDS ORDERED: GLUCAGON 1 MG/VIAL IM PRN (05:20)
[2021-01-03] MEDS ORDERED: D50W 25 GM/50 ML SYRINGE IV PRN (05:20)
[2021-01-03] MEDS: INSULIN -REGULAR HUMAN 50 UNIT/0.5 ML ML SQ SCH ×3 (06:00→18:00)
[2021-01-03 06:12] LABS: Basophils % 0.3 % (0-1.3); Hematocrit 35.5 % (39.6-49.0); Lymphocytes % 10.8 % (15.3-44.8); MPV 8.5 fL (7.6-11.3); RBC Red Blood Cell Count 3.86 M/uL (4.33-5.43)
[2021-01-03 06:29] LABS: BUN Blood Urea Nitrogen 9 mg/dL (7-18); Bicarbonate 26 mmol/L (21-32); Glucose Level 115 mg/dL (74-106); Magnesium 2.2 mg/dL (1.8-2.4); Phosphorus 2.9 mg/dL (2.5-4.9); Potassium 4.4 mmol/L (3.5-5.1); Sodium Level 140 mmol/L (136-145)
[2021-01-03] MEDS: ENOXAPARIN 40 MG/0.4 ML SQ SCH (09:27)
[2021-01-03] MEDS: DIPHENHYDRAMINE 50 MG/ML VIAL IV PRN (16:17)
[2021-01-04] MEDS: HYDROMORPHONE HCL 1 MG/ML INJ IV PRN ×6 (00:44→22:01)
[2021-01-04] MEDS: D5.45NS W/KCL 20MEQ 1,000 ML IV SCH ×3 (00:50→16:59)
[2021-01-04] MEDS: DIPHENHYDRAMINE 50 MG/ML VIAL IV PRN ×2 (03:19→22:01)
[2021-01-04] MEDS: INSULIN -REGULAR HUMAN 50 UNIT/0.5 ML ML SQ SCH ×5 (06:00→23:53)
[2021-01-04 06:13] LABS: Absolute Lymphocytes (CBC) 1.3 K/uL (0.7-4.9); Basophils % 0.3 % (0-1.3); Hematocrit 34.5 % (39.6-49.0); Lymphocytes % 20.9 % (15.3-44.8); MPV 8.7 fL (7.6-11.3); RBC Red Blood Cell Count 3.73 M/uL (4.33-5.43)
[2021-01-04 06:27] LABS: BUN Blood Urea Nitrogen 8 mg/dL (7-18); Bicarbonate 28 mmol/L (21-32); Glucose Level 103 mg/dL (74-106); Magnesium 2.3 mg/dL (1.8-2.4); Phosphorus 2.6 mg/dL (2.5-4.9); Potassium 3.9 mmol/L (3.5-5.1); Sodium Level 141 mmol/L (136-145)
[2021-01-04] MEDS: ENOXAPARIN 40 MG/0.4 ML SQ SCH (08:51)
--- NOTE | 2021-01-04 11:40 | P.PN ---
Subjective Date of Service: 01/03/21 Chief Complaint: s/p Small bowel resection for bowel tumor Subjective: Improving (Patient feels well, no gas no BM, ambulatory) Physical Examination - Vital Signs Temperature: 98.3 F Blood Pressure: 115/68 Pulse: 79 Respirations: 18 Pulse Ox (%): 95 - Physical Exam General: Alert, In no apparent distress, Cooperative Respiratory: Clear to auscultation bilaterally, Diminished Cardiovascular: No edema, Regular rate/rhythm Gastrointestinal: Other - Studies Laboratory Data (last 24 hrs) 01/04/21 05:45: Sodium 141, Potassium 3.9, BUN 8, Creatinine 0.77, Glucose 103, Phosphorus 2.6, Magnesium 2.3 01/04/21 05:45: WBC 6.20 D, Hgb 12.0 L, Hct 34.5 L, Plt Count 206 Assessment And Plan - Current Problems (Diagnosis) (1) Small bowel mass Current Visit: Yes Status: Acute Plan: s/p Small bowel resection for small bowel tumor 01/02/2021 - continue NGT decompression with LIWS - continue NPO, IV fluid - continue current pain regime - ambulate with assist - serial exams - continue to check daily labs - electrolyte replacement protocol - incentive spirometry - benadril for sinusitis
--- NOTE | 2021-01-04 11:51 | P.PN ---
Subjective Date of Service: 01/04/21 Chief Complaint: s/p Small bowel resection for bowel tumor Subjective: Improving (passing gas) Physical Examination - Vital Signs Temperature: 98.3 F Blood Pressure: 115/68 Pulse: 79 Respirations: 18 Pulse Ox (%): 95 - Physical Exam General: Alert, In no apparent distress, Cooperative Neck: Supple Respiratory: Diminished Cardiovascular: Regular rate/rhythm Gastrointestinal: Other (soft, mild appropriate TTP, ND, incision clean and dry, gala in place) - Studies Laboratory Data (last 24 hrs) 01/04/21 05:45: Sodium 141, Potassium 3.9, BUN 8, Creatinine 0.77, Glucose 103, Phosphorus 2.6, Magnesium 2.3 01/04/21 05:45: WBC 6.20 D, Hgb 12.0 L, Hct 34.5 L, Plt Count 206 Assessment And Plan - Current Problems (Diagnosis) (1) Small bowel mass Current Visit: Yes Status: Acute Plan: s/p Small bowel resection for small bowel tumor 01/02/2021 - continue NGT decompression with LIWS, clamp trial today - continue NPO, IV fluid - continue current pain regime - ambulate with assist - serial exams - continue to check daily labs - electrolyte replacement protocol - incentive spirometry - benadril for sinusitis
[2021-01-05] MEDS: D5.45NS W/KCL 20MEQ 1,000 ML IV SCH ×4 (02:48→23:05)
[2021-01-05 05:17] LABS: Absolute Lymphocytes (CBC) 1.1 K/uL (0.7-4.9); Basophils % 0.5 % (0-1.3); Hematocrit 32.1 % (39.6-49.0); Lymphocytes % 18.4 % (15.3-44.8); MPV 8.9 fL (7.6-11.3); RBC Red Blood Cell Count 3.49 M/uL (4.33-5.43)
[2021-01-05 05:25] LABS: BUN Blood Urea Nitrogen 6 mg/dL (7-18); Bicarbonate 29 mmol/L (21-32); Glucose Level 102 mg/dL (74-106); Magnesium 2.2 mg/dL (1.8-2.4); Phosphorus 3.4 mg/dL (2.5-4.9); Potassium 4.3 mmol/L (3.5-5.1); Sodium Level 140 mmol/L (136-145)
[2021-01-05] MEDS: INSULIN -REGULAR HUMAN 50 UNIT/0.5 ML ML SQ SCH ×4 (05:46→20:13)
[2021-01-05] MEDS: HYDROMORPHONE HCL 1 MG/ML INJ IV PRN ×2 (05:46→09:21)
[2021-01-05] MEDS: ENOXAPARIN 40 MG/0.4 ML SQ SCH (09:20)
[2021-01-05] MEDS ORDERED: HYDROMORPHONE HCL 1 MG/ML INJ IV PRN (12:05)
--- NOTE | 2021-01-05 13:30 | P.PN ---
Subjective Date of Service: 01/05/21 Chief Complaint: s/p Small bowel resection for bowel tumor Subjective: Improving (tolerating diet, pain improving, passing gas, no nausea) Review of Systems 10-point ROS is otherwise unremarkable Physical Examination - Vital Signs Temperature: 98.3 F Blood Pressure: 114/70 Pulse: 87 Respirations: 18 Pulse Ox (%): 94 - Physical Exam General: Alert, In no apparent distress, Cooperative HEENT: Normocephalic, Mucous membr. moist/pink Neck: Supple Respiratory: Clear to auscultation bilaterally, Normal air movement Cardiovascular: No edema, Regular rate/rhythm Gastrointestinal: Other (soft, mild appropriate TTP, ND, incision is clean and dry with gala in place) - Studies Laboratory Data (last 24 hrs) 01/05/21 04:32: Sodium 140, Potassium 4.3, BUN 6 L, Creatinine 0.77, Glucose 102, Phosphorus 3.4, Magnesium 2.2 01/05/21 04:32: WBC 5.90, Hgb 11.3 L, Hct 32.1 L, Plt Count 208 Assessment And Plan - Current Problems (Diagnosis) (1) Small bowel mass Current Visit: Yes Status: Acute Plan: s/p Small bowel resection for small bowel tumor 01/02/2021 - NGT removed yesterday, tolerating clears - advance to fulls today - continue IV fluid - change to PO pain meds, decrease IV - ambulate with assist - serial exams - continue to check daily labs - electrolyte replacement protocol - incentive spirometry - benadril for sinusitis - likely DC in AM
[2021-01-05] MEDS: HYDROCODONE/APAP 5/325 MG TAB PO PRN ×2 (15:43→23:05)
[2021-01-05] MEDS: DIPHENHYDRAMINE 50 MG/ML VIAL IV PRN (19:30)
[2021-01-06 04:57] LABS: Absolute Lymphocytes (CBC) 1.1 K/uL (0.7-4.9); Basophils % 0.5 % (0-1.3); Hematocrit 32.4 % (39.6-49.0); MPV 8.7 fL (7.6-11.3); RBC Red Blood Cell Count 3.52 M/uL (4.33-5.43)
[2021-01-06 05:12] LABS: BUN Blood Urea Nitrogen 5 mg/dL (7-18); Bicarbonate 30 mmol/L (21-32); Glucose Level 104 mg/dL (74-106); Magnesium 2.3 mg/dL (1.8-2.4); Phosphorus 3.5 mg/dL (2.5-4.9); Potassium 4.5 mmol/L (3.5-5.1); Sodium Level 141 mmol/L (136-145)
[2021-01-06] MEDS: D5.45NS W/KCL 20MEQ 1,000 ML IV SCH (06:00)
[2021-01-06] MEDS: INSULIN -REGULAR HUMAN 50 UNIT/0.5 ML ML SQ SCH (07:30)
[2021-01-06] MEDS: ENOXAPARIN 40 MG/0.4 ML SQ SCH (07:34)
--- NOTE | 2021-01-06 08:25 | P.DS ---
Admission Date: 01/02/21 Discharge Date: 01/06/21 Disposition: ROUTINE DISCHARGE Discharge Condition: GOOD Reason for Admission: s/p Small bowel resection for bowel tumor - Problems (1) Small bowel mass Current Visit: Yes Status: Acute Brief History of Present Illness: Patient is a 30 year old man admitted with small bowel obstruction and no history of abdominal surgery or inflammatory conditions, he did well after discharge and I saw him in clinic and sent him to Dr. Christofer Yeboah - gastroenterology for workup and to see if a push enteroscopy could get a tissue diagnosis for possible small bowel tumor. MR Enteroscopy was consistent with a small bowel tumor. He was sent back to me for surgical planning. I reviewed his CT scan and determined he was a good surgical candidate. Hospital Course: Patient had exploratory laparotomy with minilaparotomy incision, small bowel resection with regional lymphadenectomy, and primary anastamosis. He did well, ambulatory, tolerating diet well, pain well controlled with PO pain meds, passing gas, having bowel movements. Vital Signs/Physical Exam: Temp Pulse Resp BP Pulse Ox 97.8 F 63 16 116/64 100 01/06/21 04:00 01/06/21 04:00 01/06/21 04:00 01/06/21 04:00 01/06/21 04:00 General: Alert, In no apparent distress, Cooperative HEENT: Mucous membr. moist/pink Neck: Supple Respiratory: Clear to auscultation bilaterally Cardiovascular: Regular rate/rhythm Gastrointestinal: Soft and benign, Non-distended, No masses, No rebound, No guarding, Other (soft, mild appropriate TTP, ND, incision is clean and dry with gala in place, no rebound, no guarding. ) Integumentary: No rashes Neurological: Normal speech Laboratory Data at Discharge: WBC 3.80 K/uL (4.3-10.9) L D 01/06/21 04:12 Hgb 11.2 g/dL (13.6-17.9) L 01/06/21 04:12 Hct 32.4 % (39.6-49.0) L 01/06/21 04:12 Plt Count 204 K/uL (152-406) 01/06/21 04:12 PT 11.2 SECONDS (9.5-12.5) 12/30/20 12:00 INR 0.97 12/30/20 12:00 Sodium 141 mmol/L (136-145) 01/06/21 04:12 Potassium 4.5 mmol/L (3.5-5.1) 01/06/21 04:12 BUN 5 mg/dL (7-18) L 01/06/21 04:12 Creatinine 0.64 mg/dL (0.55-1.3) 01/06/21 04:12 Glucose 104 mg/dL (74-106) 01/06/21 04:12 Phosphorus 3.5 mg/dL (2.5-4.9) 01/06/21 04:12 Magnesium 2.3 mg/dL (1.8-2.4) 01/06/21 04:12 Home Medications: NK [No Home Meds] 12/30/20 Diet: soft Activity: No lifting more than 10 lbs Followup: Jhony Henao MD [ACTIVE - CAN ADMIT] -
[2021-01-06 08:40] VITALS: O2SAT 98
[2021-01-06 08:46] VITALS: BP 119/73; TEMP 97.9
== END 2021-01-06 10:40 | disposition home or self-care (01) | DRG 330 ==
LOC: OR 07:45 → 2ND 17:01
PROVIDERS: ADMIT Surgery; ATTEND Surgery
PROC: 0DB80ZZ Excision of Small Intestine, Open Approach (ICD-10-PCS; 2021-01-02)
PROC: 0WJG0ZZ Inspection of Peritoneal Cavity, Open Approach (ICD-10-PCS; principal; 2021-01-02 10:00)
DX: C18.9 Malignant neoplasm of colon, unspecified (principal); C77.9 Secondary and unspecified malignant neoplasm of lymph node, unspecified; Z20.822 Contact with and (suspected) exposure to COVID-19
CPT/HCPCS: 36415; 80048; 82947; 83735; 84100; 85025; 85610; 86850; 86900; 86901; 88309; 94010; 94760; 97116; 97161; J0330; J0690; J1100; J1170; J1200; J1650; J2250; J2405; J2550; J2704; J2710; J3010; J7120; U0003

== ENCOUNTER 2021-02-01 06:29 | Day surgery (SDC) | payer SELFPAY ==
[2021-02-01] MEDS ORDERED: Ringers Lactate 1,000 ML IV ONE (07:33)
[2021-02-01] MEDS ORDERED: CEFOXITIN/NS 1gm 1 GM/50 ML BAG ONE (07:33)
[2021-02-01] MEDS ORDERED: ACETAMINOPHEN 500 MG TAB ONE (07:35)
[2021-02-01] MEDS ORDERED: CELECOXIB 100 MG CAPSULE ONE (07:35)
[2021-02-01] MEDS ORDERED: propofoL 200 MG/20 ML VIAL IV ONE (07:51)
[2021-02-01] MEDS ORDERED: LIDOCAINE 1% MPF 5 ML VIAL ONE (07:51)
[2021-02-01] MEDS ORDERED: MIDAZOLAM HCL 2 MG/2 ML INJ ONE ×2 (07:51→08:39)
[2021-02-01] MEDS ORDERED: FENTANYL CITR 100 MCG/2 ML ONE (07:51)
[2021-02-01] MEDS ORDERED: BUPIVACAINE 0.25% PF 10 ML VIAL ONE (08:10)
[2021-02-01] MEDS ORDERED: NS 0.9% VIAL 10 ML ONE (08:10)
[2021-02-01] MEDS ORDERED: HEPARIN 5000 UNIT/ML 1 ML VIAL ONE (08:10)
[2021-02-01] MEDS ORDERED: NA CHLORIDE 0.9% 100 ML IV ONE (08:14)
[2021-02-01] MEDS ORDERED: KETOROLAC 30 MG/ML INJ ONE (08:52)
--- NOTE | 2021-02-01 09:10 | P.OP ---
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
--- NOTE | 2021-02-01 09:49 | RAD REPORT ---
EXAM DESCRIPTION: RAD - Fluoroscopy <1 Hour - 02/01/2021 9:43 am CLINICAL HISTORY: Device placement central venous catheter placement FINDINGS: A central venous catheter was placed into the superior vena cava. 14 fluoroscopic spot im ages are submitted. The examination was performed by Dr. Henao Fluoroscopy time 0.8 minutes
--- NOTE | 2021-02-01 10:01 | RAD REPORT ---
EXAM DESCRIPTION: [facility] Single View02/01/2021 9:52 am CLINICAL HISTORY: Device placement/central venous catheter placement IMPRESSION: Central venous catheter with its tip in the superior vena cava No pneumothorax
[2021-02-01 13:42] VITALS: TEMP 97.5; O2SAT 98
[2021-02-01 13:44] VITALS: BP 100/55
--- NOTE | 2021-02-01 20:16 | OP ---
Date of Procedure: 02/01/2021 Surgeon: Jhony Henao MD, Preoperative Diagnosis: History of small-bowel adenocarcinoma. Postoperative Diagnosis: History of small-bowel adenocarcinoma. Procedure Performed: Placement of right internal jugular chemotherapy port using ultrasound fluorosc opy with interpretation. Anesthesia: MAC plus local with 0.25% Marcaine without epinephrine. Estimated Blood Loss: Less than 50 mL. Specimen: None. Findings: Fluoroscopy confirmed position as well as ultrasound of the right internal jugular vein an d catheter placed in position. Complications: None. Implants: Port-A-Cath. Disposition: Patient transferred to recovery room in good condition. Procedure In Detail: After informed was obtained, patient brought to the operating room, prepped and draped in the usual sterile fashion. After adequate anesthesia achieved, patient was placed in steep Trendelenburg position. Ultrasound was used to identify the right internal jugular vein. The right internal jugular skin was anesthetized with 0.25% Marcaine and a finder needle using a microintroduc er set was introduced in the right internal jugular vein on the first attempt under direct visualizat ion with ultrasound guidance. At this point, a micro needle was introduced and fluoroscopy confirmed position at the SVC. At this point, a neck incision was made in the neck and the microintroducer sh eath was placed and Microwire was removed and the standard wire was then advanced and confirmed posit ion once again with fluoroscopy in the SVC. At this point, the introducer sheath was removed and the wire left in place. At this point, I anesthetized the tract on the chest wall and all the way down to the prepectoral fascia with 0.25% Marcaine and made an incision using an 11 blade down to subcutan eous tissues. Dissection continued down to the prepectoral fascia using electrocautery circumferritesh ally to remove some additional adipose tissue. I then used a tunneling device to bring the catheter up through the insertion site and sized the catheter appropriately and then placed the introducer she ath into the internal jugular vein. The wire was removed at this point and the catheter was advanced . Using fluoroscopic guidance, position was placed around the SVC and introducer sheath was removed. I then attached the button of the subcutaneous port device to the catheter and flushed at this poin t with saline, which flushed quite easily. I then secured to the chest wall using 2-0 Prolene suture circumferentially and irrigated the area copiously. I then packed with heparin at this point and cl osed the deep dermal tissues using interrupted 3-0 Vicryl and the skin was closed with a 4-0 Monocryl in a running fashion. Dermabond placed over top. I then closed the insertion site with a single in terrupted 3-0 nylon suture and a sterile dressing placed over top. Patient tolerated the procedure w ell without evidence of any complications, transferred to PACU in good condition. All counts were co rrect at the end of the case. MANDA/WALESKA Voice ID: [id number] Report ID: [id number]
== END 2021-02-01 11:50 | disposition home or self-care (01) ==
LOC: PRE 06:29
PROVIDERS: ATTEND Surgery
PROC: 0JH60WZ Insertion of Totally Implantable Vascular Access Device into Chest Subcutaneous Tissue and Fascia, Open Approach (ICD-10-PCS; principal; 2021-02-01 08:00)
DX: C17.9 Malignant neoplasm of small intestine, unspecified (principal); Z20.822 Contact with and (suspected) exposure to COVID-19
CPT/HCPCS: 71045; 76000; C1788; J0694; J1644; J2250; J2704; J3010; J7120; U0003

== ENCOUNTER → 2022-01-05 | Day surgery (SDC) | payer SELFPAY ==
[2022-01-03 11:22] LABS: SARS-CoV-2 Antigen Rapid Res Negative (Negative)
[~2022-01-05] MED LIST: BUPIVACAINE 0.25% PF 10 ML VIAL ONE; CEFAZOLIN SODIUM 1 GM/VIAL ONE; FENTANYL CITR 100 MCG/2 ML ONE; KETOROLAC 30 MG/ML INJ ONE; LIDOCAINE 1% W/EPI 1:100,000 10 ML VIAL ONE; LIDOCAINE 2% MPF 5 ML VIAL ONE; MIDAZOLAM HCL 2 MG/2 ML INJ ONE; NS 0.9% VIAL 10 ML ONE; ONDANSETRON 4 MG/2 ML VIAL ONE; Ringers Lactate 1,000 ML IV ONE; dexAMETHasone 10 MG/ML VIAL ONE; propofoL 200 MG/20 ML VIAL IV ONE
--- NOTE | 2022-01-05 09:37 | P.OP ---
Preoperative diagnosis: Attention to Chemotherapy Port Postoperative diagnosis: Attention to Chemotherapy Port Primary procedure: Removal of RIGHT chest Chemotherapy Port Anesthesia: MAC + Local Estimated blood loss: <1cc Specimen: port for ID only Findings: good hemostasis Complications: None Transferred to: Recovery Room Condition: Good
[2022-01-05 10:20] VITALS: O2SAT 99
[2022-01-05 11:25] VITALS: BP 125/68; TEMP 97.2
--- NOTE | 2022-01-06 00:13 | OP ---
Date of Procedure: 01/05/2022 Surgeon: Augusto Henao MD, Preoperative Diagnosis: Attention to chemotherapy port. Postoperative Diagnosis: Attention to chemotherapy port. Procedure Performed: Removal of a right chest/right internal jugular chemotherapy port. Anesthesia: MAC plus local. Estimated Blood Loss: Less than 1 cc. Specimen: Port for ID only. Findings: Good hemostasis achieved at the end of the procedure. Complications: The patient had no complications. Disposition: Transferred to recovery room in good condition at the end of the procedure. Procedure In Detail: After informed consent was obtained, patient was brought to the operating room, prepped and draped in the usual sterile fashion. After adequate anesthesia was achieved, going thro ugh a previous incision in the right chest wall, I anesthetized the skin. I then made this incision overlying this area down through subcutaneous tissues to expose the port. The port cavity was opened bluntly using hemostats. The patient was placed in steep Trendelenburg position. At this point, I used Metzenbaum scissors to remove the Prolene sutures, which held the port in place. Sutures were r emoved at this point, and the catheter was then able to be delivered onto the chest wall. I then hel d pressure on the patient's insertion site at the internal jugular and inferior to the collar bone an d pulled the catheter out and sent off for ID only for pathologic confirmation. I then placed the pa tient in reverse Trendelenburg. At this point, a good hemostasis was achieved with gentle pressure o nly. I then irrigated the cavity and closed the deep dermal plane using interrupted 3-0 Vicryl sutur es and skin was closed in a 4-0 Monocryl fashion. Dermabond was placed over top. The patient tolera augusto the procedure without evidence of any complication and was transferred back in good condition. A ll counts were correct at the end of the case. TK/MODL Voice ID: [id number] Report ID: [id number]
== END | disposition home or self-care (01) ==
LOC: OR 07:41
PROVIDERS: ATTEND Surgery
PROC: 0JPT0WZ Removal of Totally Implantable Vascular Access Device from Trunk Subcutaneous Tissue and Fascia, Open Approach (ICD-10-PCS; principal; 2022-01-05 08:45)
DX: C17.9 Malignant neoplasm of small intestine, unspecified (principal); Z20.822 Contact with and (suspected) exposure to COVID-19; Z45.2 Encounter for adjustment and management of vascular access device
CPT/HCPCS: 36415; 87811; 88300; A4216; J0690; J1100; J2001; J2250; J2405; J2704; J3010; J7120